=== PATIENT | male | born 1965 | race Caucasian/White ===

== ENCOUNTER 2017-06-16 00:09 | Emergency (ER) | payer OTHER ==
[~2017-06-16] VITALS: Ht 190.5 cm; Wt 88.0 kg
[2017-06-16] MEDS ORDERED: MoRPHine SULFATE 10 MG/ML CARP/VIAL ONE (00:26)
[2017-06-16] MEDS ORDERED: ONDANSETRON INJ 2 MG/ML 2 ML VIAL IV STA (00:30)
[2017-06-16 00:31] VITALS: TEMP 36.7; Ht 190.5 cm; Wt 88.0 kg
[2017-06-16] MEDS ORDERED: LABETALOL HCL IV 5 MG/ML 20ML IV ONE ×2 (00:39→01:31)
[2017-06-16 00:54] LABS: MEAN CELL VOLUME 81.6 fL (80-100); MEAN CORPUSCULAR HEMOGLOBIN 27.8 pg (25-34); MEAN CORPUSCULAR HGB CONC 34.1 g/dl (32-36); PLATELET COUNT 211 K/uL (130-400); RED BLOOD COUNT 5.64 M/uL (4.7-6.1); WHITE BLOOD COUNT 12.11 K/uL (4.8-10.8)
[2017-06-16 00:56] VITALS: O2SAT 78
[2017-06-16 01:04] LABS: PROTHROMBIN TIME (PATIENT) 10.7 SECONDS (9.0-12.0)
[2017-06-16 01:24] VITALS: PULSE 80
[2017-06-16 01:31] LABS: BLOOD UREA NITROGEN 8 mg/dl (7-18); BUN/CREATININE RATIO 9.6 (10-20); CALCIUM 9.3 mg/dl (8.5-10.1); CARBON DIOXIDE 25 mmol/L (21-32); CHLORIDE 106 mmol/L (98-107); CREATININE 0.82 mg/dl (0.60-1.40); GLUCOSE 158 mg/dl (70-99); POTASSIUM 3.5 mmol/L (3.5-5.1); SODIUM 139 mmol/L (136-145)
[2017-06-16 01:36] LABS: CKMB/CK RATIO 1.2 (0-3.0)
[2017-06-16 01:44] VITALS: BP 165/92; O2SAT 99
--- NOTE | 2017-06-16 03:34 | EMERGENCY ROOM VISIT NOTE ---
History Report prepared by Hermila: Alyssa Hernandez Under the Supervision of: Dr. Pat Marquez D.O. First contact with patient: 00:22 Chief Complaint: HEADACHE Stated Complaint: HEADACHE History of Present Illness The patient is a 51 year old male who presents to the Emergency Room with complaints of sudden worsening headache starting 3 hours ago. The patient states that he laid down and started to experience a pressure in his neck and posterior head. He states that shortly after that he started vomiting. He denies feeling abnormal the last few days. The patient notes his father of a stroke and that he has had high blood pressure a few times. Source of History: patient Onset: 3 hours ago Position: head Quality: pressure Timing: worsening, other (sudden) Associated Symptoms: + vomiting Note: The patient denies feeling abnormal the last few days. Review of Systems See HPI for pertinent positives & negatives. A total of 10 systems reviewed and were otherwise negative. Past Medical & Surgical Medical Problems: (1) Hernia Family History Stroke Social History Alcohol Use: none Drug Use: none Marital Status: single Housing Status: lives alone Occupation Status: employed Current/Historical Medications No Active Prescriptions or Reported Meds Allergies Coded Allergies: No Known Allergies (Unverified , 06/16/17) Uncoded Allergies: N (Allergy, Unknown, 10/24/02) NKDA (Allergy, Unknown, 10/24/02) Physical Exam Vital Signs Date Time Temp Pulse Resp B/P (MAP) Pulse Ox O2 Delivery O2 Flow Rate FiO2 06/16/17 01:44 165/92 99 06/16/17 01:28 196/112 06/16/17 01:24 80 14 98 06/16/17 01:16 164/92 06/16/17 01:09 69 14 99 06/16/17 01:01 165/109 06/16/17 00:56 78 Nasal Cannula 2.0 06/16/17 00:55 181/101 06/16/17 00:54 66 12 100 06/16/17 00:48 73 06/16/17 00:46 192/111 06/16/17 00:41 169/103 06/16/17 00:39 69 18 100 06/16/17 00:38 169/103 06/16/17 00:31 36.7 85 16 175/113 98 Room Air 06/16/17 00:31 175/113 Physical Exam HEENT: Head - normocephalic and atraumatic. Pupils are equal, round, and reactive to light. Extraocular eye muscles are intact and sclera are anicteric. Ears - bilaterally patent canals with noninjected tympanic membranes and no evidence of hemotympanum. Nose - moist nasal mucosa without discharge. Mouth - moist buccal mucosa. Oropharynx is nonerythematous and there is no tonsillar exudate or edema noted. Poor dentition. Neck: Supple; no JVD, nuchal rigidity, cervical lymphadenopathy, or auscultated bruits. Heart: Regular rate and rhythm. There is a normal S1 and S2 with no murmurs, clicks, or gallops appreciated. Lungs: Clear to auscultation bilaterally with no wheezes, rales, or rhonchi. Abdomen: Soft, completely nontender, nondistended, with good bowel sounds. There are no palpable pulsatile masses or hepatosplenomegaly. There is no guarding, rigidity, or rebound noted. Extremities: No evidence of cyanosis, clubbing, or edema. There are easily palpable peripheral pulses. Skin: Pale and diaphoretic. Neuro:The patient is awake and alert, oriented to day, time, and place. Muscle strength is 5/5 in all 4 extremities. 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 There are no cerebellar signs. The patient is slightly slow to answer questions. Medical Decision & Procedures ER Provider Diagnostic Interpretation: Radiology results as stated below per my review and the radiologist's interpretation: CT HEAD: No prior. Subarachnoid hemorrhage with blood in the basilar cisterns. Differential considerations include aneurysm rupture. CTA could further assess. Radiologist: Dre Cuevas M.D. Study ready at 00:18 and initial results transmitted at 00:33. Laboratory Results 06/16/17 00:27 06/16/17 00:27 Test 06/16/17 00:27 Red Blood Count 5.64 M/uL (4.7-6.1) Mean Corpuscular Volume 81.6 fL (80-100) Mean Corpuscular Hemoglobin 27.8 pg (25-34) Mean Corpuscular Hemoglobin Concent 34.1 g/dl (32-36) RDW Standard Deviation 39.5 fL (36.4-46.3) RDW Coefficient of Variation 13.3 % (11.5-14.5) Mean Platelet Volume 9.0 fL (7.4-10.4) Prothrombin Time 10.7 SECONDS (9.0-12.0) Prothromb Time International Ratio 1.0 (0.9-1.1) Activated Partial Thromboplast Time 25.0 SECONDS (21.0-31.0) Partial Thromboplastin Ratio 1.0 Anion Gap 8.0 mmol/L (3-11) Est Creatinine Clear Calc Drug Dose 125.9 ml/min Estimated GFR () 117.8 Estimated GFR (Non- 101.7 BUN/Creatinine Ratio 9.6 (10-20) Calcium Level 9.3 mg/dl (8.5-10.1) Total Creatine Kinase 73 U/L (39-308) Creatine Kinase MB 0.9 ng/ml (0.5-3.6) Creatine Kinase MB Ratio 1.2 (0-3.0) Troponin I < 0.015 ng/ml (0-0.045) Laboratory results per my review. Medications Administered Medications (Trade) Dose Ordered Sig/Re Route Start Time Stop Time Status Last Admin Dose Admin Morphine Sulfate (MoRPHine SULFATE INJ) 10 mg STK-MED ONCE .ROUTE 06/16/17 00:26 06/16/17 00:27 DC 06/16/17 00:26 6 MG Ondansetron HCl (Zofran Inj) 4 mg NOW STAT IV 06/16/17 00:30 06/16/17 00:33 DC 06/16/17 00:30 4 MG Labetalol HCl (Normodyne IV) 5 mg STK-MED ONCE IV 06/16/17 00:39 06/16/17 00:40 DC 06/16/17 00:39 5 MG Procedure 0026: Ordered Morphine Sulfate 10 mg IV. 0030: Ordered Zofran Inj 4 mg IV. 0039: Ordered Labetalol HCl 5 mg IV. 0131: Ordered Labetalol HCl 5 [place]. [address]: Ordered labetalol 5 mg IV to be given just prior to transport ECG Indication: nausea Rate (beats per minute): 73 Rhythm: normal sinus Findings: no acute ischemic change, no ectopy ED Course 0022: Past medical records reviewed. The patient was evaluated in room C4. A complete history and physical exam was performed. The patient had a stat CT scan of the brain performed. 0026: The patient continued to complain of severe occipital head pain and I Ordered Morphine Sulfate 6mg IV 0029: I reevaluated the patient and he is currently vomiting. 0030: Ordered Zofran Inj 4 mg IV. 0036: I reevaluated the patient and he received Morphine. His O2 stats dropped to 70%. He is getting O2 and Labetalol. I reviewed the results of the CT scan with the patient 0039: Ordered Labetalol HCl 5 mg IV. 0047: Discussed the patient's case with Dr. Robledo(Neurosurgery)-[facility]. The patient will be transferred and evaluated for further management. 0055: I spoke with Dr. Hernandez who is an clinical partner at [facility]. 0128: I reevaluated the patient and his nausea is better. He states that his pain is somewhat better. His blood pressure went up despite the Labetalol and will be getting more. 0131: Ordered Labetalol HCl 5 mg IV. 0135: I reevaluated the patient. Life flight is bed side. I spoke with the patient's brother, Panchito. The patient's blood pressure remained elevated and he was given a third dose of labetalol Medical Decision This is a 51-year-old male patient who presents to the emergency department by EMS after developing a severe occipital headache when laying down for bed. Differential diagnoses include acute CVA, migraine, intracranial hemorrhage. LABS: White count 12.1 Stable H&H Glucose 158 Normal renal function Negative cardiac enzymes Normal Coags CT scan of the brain confirms subarachnoid hemorrhage. The patient had no focal neurological findings although he was somewhat lethargic. The patient will be flown to [facility] for neurosurgical evaluation. His blood pressure was controlled with IV labetalol. Our target was approximately 160 systolically. Consults Time Called: 37 Consulting Physician: Dr. Elizabeth Lindsay Returned Call: 46 Discussed the patient's case with Dr. Elizabeth Lindsay. The patient will be transferred and evaluated for further management. Additional Consults: Time Called: 49 Consulted Physician: Dr. elizabeth Lindsay Intesivist Returned Call: [phone] Additional Comments: I spoke with Dr. Hernandez who is an clinical partner at [facility]. Impression Primary Impression: Subarachnoid hemorrhage Critical Care I have personally spent greater than 45 minutes of critical care time in the direct management of this patient. This includes bedside care, interpretation of diagnostic studies, and testing, discussion with consultants, patient, and family members, and other required patient management activities. This 45 minutes is in excess of all separately billable procedures. Scribe Attestation The scribe's documentation has been prepared under my direction and personally reviewed by me in its entirety. I confirm that the note above accurately reflects all work, treatment, procedures, and medical decision making performed by me. Departure Information Dispostion Transfer Acute Care Facility Prescriptions No Active Prescriptions or Reported Meds Referrals No Doctor, Assigned (PCP) Patient Instructions My [facility]
--- NOTE | 2017-06-16 07:09 | DIAGNOSTIC IMAGING REPORT ---
CT SCAN OF THE BRAIN WITHOUT IV CONTRAST CLINICAL HISTORY: Headache. COMPARISON STUDY: No priors. TECHNIQUE: Unenhanced axial CT scan of the brain is performed from the vertex to the skull base. A dose lowering technique was utilized adhering to the principles of ALARA. CT DOSE: 614.27 mGy.cm FINDINGS: Brain parenchyma: There is subarachnoid hemorrhage, with blood filling the suprasellar cistern end extending into the sylvian fissures bilaterally. Blood is also present within the prepontine cistern at the skull base extending towards the foramen magnum. Trace blood is also seen along the midline falx. There is no mass effect or evidence of acute territorial ischemia by CT criteria. Huizar-white matter is preserved. No extra-axial fluid collection is seen. Ventricles, sulci, cisterns: Normal in configuration. Intracranial vasculature: The visualized intracranial vasculature at the skull base is normal in appearance. Calvarium: Unremarkable. Sinuses and mastoids: The visualized paranasal sinuses are clear. The mastoid air cells are well pneumatized. Orbits: The bony orbits are grossly intact. IMPRESSION: 1. Findings are consistent with subarachnoid hemorrhage as above centered around the suprasellar cistern. The appearance is highly concerning for aneurysm rupture. Consider CT angiogram of the brain for further assessment. 2. There is no mass effect or evidence of acute territorial ischemia by CT criteria. Electronically signed by: Maynor Martinez M.D. 06/16/2017 7:07 AM Dictated Date/Time: 06/16/2017 7:04 AM
== END 2017-06-16 01:46 | disposition short-term general hospital (02) ==
LOC: EDBD 00:09 → C.EDC 00:10
DX: I60.9 Nontraumatic subarachnoid hemorrhage, unspecified (principal); Z82.3 Family history of stroke